=== PATIENT | male | born 1955 | race Caucasian/White ===

== ENCOUNTER → 2023-06-22 11:36 | Outpatient (BNVA) | payer MEDICARE, SELFPAY | PROVIDERS: PCP Nurse Practitioner Family; Visit Provider Physician Assistant | DX: S83.91XA Sprain of unspecified site of right knee, initial encounter; X50.9XXA Other and unspecified overexertion or strenuous movements or postures, initial encounter | CPT/HCPCS: 73560; 73565; 99203 ==

== ENCOUNTER 2025-03-10 19:03 | Emergency (ER) | payer MEDICARE, SELFPAY ==
[2025-03-10 19:04] VITALS: BP 168/83; PULSE 65; RESP 14; TEMP 36.8; O2SAT 99; BMI 25.8
--- NOTE | 2025-03-10 19:07 | ECG_ITS ---
[facility] Test Date: 2025-03-10 Pat Name: Mina Tenorio Department: Room: Gender: Male Fire Control Assistant: : 1955 Requested By: Raine Freitas Order Number: [id number] Rice MD: Tessa Curtis M.D. Measurements Intervals Hume Rate: 67 P: 30 HI: 204 QRS: 15 QRSD: 76 T: 34 QT: 379 QTc: 403 Interpretive Statements SINUS RHYTHM No previous ECG available for comparison Electronically Signed On 03-10-2025 23:22:45 CDT by Tessa Curtis M.D. [email or web address] [id number]
--- OUTSIDE RECORDS SUMMARY | 2025-03-10 19:09 | XMS_ITS | Encounter Summary ---
Author Organization [facility] Address [address] [place] [address] Care Team Providers Care State Trooper Name Role Phone Alireza Greer MD, Brown David Primary Care Provider Encounter Details Date Type Department Care Team (Latest Contact Info) Description 2002 Outpatient Historical [facility] Roosevelt Guardado MD [address] [place] [address] HYPERTENSION NOS (Primary Dx); ABN FIND-STOOL CONTENTS-OCC BLOOD; GENERALIZED ANXIETY DIS Social History Tobacco Use Types Packs/Day Years Used Date Smoking Tobacco: Never Assessed Sex and Gender Information Value Date Recorded Sex Assigned at Not on file Legal Sex Male 4:27 AM DEBURRER STRIP Gender Identity Not on file Sexual Orientation Not on file documented as of this encounter Plan of Treatment Not on file documented as of this encounter Visit Diagnoses Diagnosis Unspecified essential hypertension- Primary Nonspecific abnormal finding in stool contents Generalized anxiety disorder documented in this encounter Care Teams State Trooper Relationship Specialty Start Date End Date Brown Lay Jr., MD [address] [place] [phone] PCP - General 07/12/07 documented as of this encounter
--- OUTSIDE RECORDS SUMMARY | 2025-03-10 19:09 | XMS_ITS | Encounter Summary ---
Author Organization [facility] Address [address] [place] [address] Care Team Providers Care Aircraft Time Clerk Name Role Phone Alireza Greer MD, Brown David Primary Care Provider Encounter Details Date Type Department Care Team (Late st Contact Info) Description 07/18/[address] [facility] Ophthalmology [address] [address] [place] [phone] Selam Rodney MD [address] [place] [address] Social History Tobacco Use Types Packs/Day Years Used Date Smoking Tobacco: Never Assessed Sex and Gender Information Value Date Recorded Sex Assigned at Not on file Legal Sex Male 4:27 AM INTEGRATED CIRCUIT LAYOUT DESIGNER Gender Identity Not on file Sexual Orientation Not on file documented as of this encounter Miscellaneous Notes * Letter - Becki Rodney - 07/18/2007 12:00 AM CST 07/18/2007 Gabriel Slater O.D. [address] [place] [id number] RE: Pipe TenorioJr : [address] Slater: Mr. Tenorio had retinal detachment repair in the right eye on May 12, 2007, with scleral buckleand vitrectomy. As you will recall, he also had a giant retinal tear in the right eye. His postoperative recovery has been unremarkable. I saw him on May 13, 2007, May 16, May 30, June 13, 2007, and today, July 18. He feels that his vision has improved and the gas bubble is gone. He tripped and fell about three weeks ago. On today's examination, his vision measured 20/60 (ph to 20/30), right eye, and 20/20-1, left eye. IOP: 20mm/Hg, right eye. Anterior segment exam revealed: OD: a healed anterior segment with no signsof infection or inflammation. There is a 1+ posterior subcapsular cataract. Dilated Fundus Examination, OD, revealed: a moderate buckle height and a flat retina. A slit tear at 9:30 clock hour in the peripheral retina on the posterior edge of the buckle. No cystoid macular edema or epiretinal membrane is seen. I discussed the above findings with and Mrs. Tenorio. I would like to treat this tear with laser retinopexy in the right eye. He will contact his insurance prior to the procedure for pre-approval. The laser is scheduled for July 25, 2007. Thank you very much, again, for the opportunity to see Mr. Tenorio. Warm regards, Loraine Rodney M.D., Ph.D. Retina Coring Machine Operator Electronically Signed by Loraine Rodney M.D. 07/20/2007 10:02 , P, rs Job #: Document #: [id number] cc: Nidhi De Paz M.D. GRATED CIRCUIT LAYOUT DESIGNER documented in this encounter Plan of Treatment Not on file documented as of this encounter Visit Diagnoses Not on filedocumented in this encounter Care Teams Aircraft Time Clerk Relationship Specialty Start Date End Date Brown Lay Jr., MD [address] [place] [phone] PCP - General 07/12/07 documented as of this encounter
--- OUTSIDE RECORDS SUMMARY | 2025-03-10 19:09 | XMS_ITS | Encounter Summary ---
Author Organization [facility] Address [address] [place] [address] Care Team Providers Care Transmission Tester Name Role Phone Alireza Greer MD, Brown David Primary Care Provider Encounter Details Date Type Department Care Team (Latest Contact Info) Description 12/26/2002 Outpatient Historical [facility] Roosevelt Guardado MD [address] [place] [address] PURE HYPERGLYCERIDEMIA (Primary Dx); DYSMETABOLIC SYNDROME X Social History Tobacco Use Types Packs/Day Years Used Date Smoking Tobacco: Never Assessed Sex and Gender Information Value Date Recorded Sex Assigned at Not on file Legal Sex Male 4:27 AM MEDICAL RECEPTIONIST Gender Identity Not on file Sexual Orientation Not on file documented as of this encounter Plan of Treatment Not on file documented as of this encounter Visit Diagnoses Diagnosis Pure hyperglyceridemia- Primary Dysmetabolic syndrome X Dysmetabolic Syndrome X documented in this encounter Care Teams Transmission Tester Relationship Specialty Start Date End Date Brown Lay Jr., MD [address] [place] [phone] PCP - General 07/12/07 documented as of this encounter
--- OUTSIDE RECORDS SUMMARY | 2025-03-10 19:09 | XMS_ITS | Encounter Summary ---
Author Organization [facility] Address [address] [place] [address] Care Team Providers Care Gospel Worker Name Role Phone Alireza Greer MD, Brown David Primary Care Provider Encounter Details Date Type Department Care Team (Late st Contact Info) Description 05/16/2007 Outpatient Historical [facility] Ophthalmology [address] [place] [phone] Selam Rodney MD [address] [place] [address] [phone] Social History Tobacco Use Types Packs/Day Years Used Date Smoking Tobacco: Never Assessed Sex and Gender Information Value Date Recorded Sex Assigned at Not on file Legal Sex Male 4:27 AM MANAGER THERAPY Gender Identity Not on file Sexual Orientation Not on file documented as of this encounter Plan of Treatment Not on file documented as of this encounter Visit Diagnoses Not on filedocumented in this encounter Care Teams Gospel Worker Relationship Specialty Start Date End Date Brown Lay Jr., MD [address] [place] [phone] PCP - General 07/12/07 documented as of this encounter
--- OUTSIDE RECORDS SUMMARY | 2025-03-10 19:09 | XMS_ITS | Encounter Summary ---
Author Organization [facility] Address [address] [place] [address] Care Team Providers Care Explosive Operator Fuse Name Role Phone Alireza Greer MD, Brown David Primary Care Provider Encounter Details Date Type Department Care Team (Latest Contact Info) Description 03/07/2001 Outpatient Historical [facility] RashadAndrew MD [address] [facility] [address] [place] [address] Other specified disorder of gallbladder (Primary Dx) Social History Tobacco Use Types Packs/Day Years Used Date Smoking Tobacco: Never Assessed Sex and Gender Information Value Date Recorded Sex Assigned at Not on file Legal Sex Male 4:27 AM GARAGE HELPER Gender Identity Not on file Sexual Orientation Not on file documented as of this encounter Plan of Treatment Not on file documented as of this encounter Visit Diagnoses Diagnosis Other specified disorder of gallbladder- Primary documented in this encounter Care Teams Explosive Operator Fuse Relationship Specialty Start Date End Date Brown Lay Jr., MD [address] [place] [phone] PCP - General 07/12/07 documented as of this encounter
--- OUTSIDE RECORDS SUMMARY | 2025-03-10 19:09 | XMS_ITS | Encounter Summary ---
Author Organization [employer] Address [address] [place] [address] Care Team Providers Care Second Time Worker Name Role Phone Alireza Greer MD, Brown David Primary Care Provider Encounter Details Date Type Department Care Team (Latest Contact Info) Description 08/01/2002 Outpatient Historical [facility] Roosevelt Guardado MD [address] [place], [place] [address] HYPERTENSION NOS (Primary Dx) Social History Tobacco Use Types Packs/Day Years Used Date Smoking Tobacco: Never Assessed Sex and Gender Information Value Date Recorded Sex Assigned at Not on file Legal Sex Male 4:27 AM COUNTY ADMINISTRATOR Gender Identity Not on file Sexual Orientation Not on file documented as of this encounter Plan of Treatment Not on file documented as of this encounter Visit Diagnoses Diagnosis Unspecified essential hypertension- Primary documented in this encounter Care Teams Second Time Worker Relationship Specialty Start Date End Date Brown Lay Jr., MD [address] [place] [phone] PCP - General 07/12/07 documented as of this encounter
--- OUTSIDE RECORDS SUMMARY | 2025-03-10 19:09 | XMS_ITS | Encounter Summary ---
Author Organization [facility] Address [address] [place] [address] Care Team Providers Care Firer Diesel Locomotive Name Role Phone Alireza Greer MD, Brown David Primary Care Provider Encounter Details Date Type Department Care Team (Late st Contact Info) Description 07/25/2007 Outpatient Historical [facility] Ophthalmology [address] [place] [phone] Selam Rodney MD [address] [place] [address] [phone] Social History Tobacco Use Types Packs/Day Years Used Date Smoking Tobacco: Never Assessed Sex and Gender Information Value Date Recorded Sex Assigned at Not on file Legal Sex Male 4:27 AM PROJECT CONSTRUCTION MANAGER Gender Identity Not on file Sexual Orientation Not on file documented as of this encounter Plan of Treatment Not on file documented as of this encounter Visit Diagnoses Not on filedocumented in this encounter Care Teams Firer Diesel Locomotive Relationship Specialty Start Date End Date Brown Lay Jr., MD [address] [place] [phone] PCP - General 07/12/07 documented as of this encounter
--- OUTSIDE RECORDS SUMMARY | 2025-03-10 19:09 | XMS_ITS | Encounter Summary ---
Author Organization [facility] Address [address] [place] [address] Care Team Providers Care Co Op Name Role Phone Alireza Greer MD, Brown David Primary Care Provider Encounter Details Date Type Department Care Team (Late st Contact Info) Description 06/13/2007 Outpatient Historical [facility] Ophthalmology [address] [place] [address] [place] [address] [address] [place] [phone] Selam Rodney MD [address] [place] [phone] Social History Tobacco Use Types Packs/Day Years Used Date Smoking Tobacco: Never Assessed Sex and Gender Information Value Date Recorded Sex Assigned at Not on file Legal Sex Male 4:27 AM HEAD IRRIGATOR Gender Identity Not on file Sexual Orientation Not on file documented as of this encounter Plan of Treatment Not on file documented as of this encounter Visit Diagnoses Not on filedocumented in this encounter Care Teams Co Op Relationship Specialty Start Date End Date Brown Lay Jr., MD [address] [place] [phone] PCP - General 07/12/07 documented as of this encounter
--- OUTSIDE RECORDS SUMMARY | 2025-03-10 19:09 | XMS_ITS | Clinical Summary ---
Author Organization [facility] Address [address] [place] [address] Care Team Providers Care Retail Salesman Name Role Phone Alireza Greer MD, Brown David Primary Care Provider Social History Tobacco Use Types Packs/Day Years Used Date Smoking Tobacco: Never Assessed Sex and Gender Information Value Date Recorded Sex Assigned at Not on file Legal Sex Male 4:27 AM LEAD QUALITY TECHNICIAN Gender Identity Not on file Sexual Orientation Not on file Plan of Treatment Health Maintenance Due Date Last Done Comments DTAP/TDAP/TD VACCINES (1 - Tdap) 1974 COLORECTAL SCREENING 2000 FIT-DNA Q 3 years 2000 Flex Sig/CT Colonography Q 5 years 2000 Colorectal Cancer Screening 08/06/2003 FIT/FOBT Q 1 year 08/06/2003 08/05/2002 PNEUMOCOCCAL VACCINE 50+ YEARS (1 of 1 - PCV) 07/26/19 06 ZOSTER VACCINE (1 of 2) 2005 INFLUENZA VACCINE (#1) 2025 RSV VACCINE (60+ or ) (1 - 1-dose 75+ series) 2030 Insurance [facility] INSURANCE Care Teams Retail Salesman Relationship Specialty Start Date End Date Brown Lay Jr., MD [address] [place] [phone] PCP - General 07/12/07
--- OUTSIDE RECORDS SUMMARY | 2025-03-10 19:09 | XMS_ITS | Encounter Summary ---
Author Organization [facility] Address [address] [place] [address] Care Team Providers Care Brake Shoe Rebuilder Name Role Phone Alireza Greer MD, Brown David Primary Care Provider Encounter Details Date Type Department Care Team (Latest Contact Info) Description 07/29/2002 Outpatient Historical [facility] Roosevelt Guardado MD [address] [place] [address] ABN FIND-STOOL CONTENTS-OCC BLOOD (Primary Dx) Social History Tobacco Use Types Packs/Day Years Used Date Smoking Tobacco: Never Assessed Sex and Gender Information Value Date Recorded Sex Assigned at Not on file Legal Sex Male 4:27 AM WEAVER NEEDLE LOOM Gender Identity Not on file Sexual Orientation Not on file documented as of this encounter Plan of Treatment Not on file documented as of this encounter Visit Diagnoses Diagnosis Nonspecific abnormal finding in stool contents- Primary documented in this encounter Care Teams Brake Shoe Rebuilder Relationship Specialty Start Date End Date Brown Lay Jr., MD [address] [place] [phone] PCP - General 07/12/07 documented as of this encounter
--- OUTSIDE RECORDS SUMMARY | 2025-03-10 19:09 | XMS_ITS | Encounter Summary ---
Author Organization [facility] Address [address] [place] [address] Care Team Providers Care Sourcing Associate Name Role Phone Alireza Greer MD, Brown David Primary Care Provider Encounter Details Date Type Department Care Team (Latest Contact Info) Description 08/05/2002 Outpatient Historical [facility] Roosevelt Guardado MD [address] [place] [address] SCREENING MAL NEOP-SITE NEC (Primary Dx) Social History Tobacco Use Types Packs/Day Years Used Date Smoking Tobacco: Never Assessed Sex and Gender Information Value Date Recorded Sex Assigned at Not on file Legal Sex Male 4:27 AM JAZZ SINGER Gender Identity Not on file Sexual Orientation Not on file documented as of this encounter Plan of Treatment Not on file documented as of this encounter Visit Diagnoses Diagnosis Special screening for malignant neoplasms of other sites- Primary documented in this encounter Care Teams Sourcing Associate Relationship Specialty [place] [address] [place] [phone] PCP - General 07/12/07 documented as of this encounter
--- OUTSIDE RECORDS SUMMARY | 2025-03-10 19:09 | XMS_ITS | Encounter Summary ---
Author Organization [facility] Address [address] [place] [address] Care Team Providers Care Drill Press Set Up Operator Radial Name Role Phone Alireza Greer MD, Brown David Primary Care Provider Encounter Details Date Type Department Care Team (Late st Contact Info) Description 07/29/2002 Outpatient Historical [facility] Roosevelt Guardado MD [address] [place] [address] Social History Tobacco Use Types Packs/Day Years Used Date Smoking Tobacco: Never Assessed Sex and Gender Information Value Date Recorded Sex Assigned at Not on file Legal Sex Male 4:27 AM CHOPPER OPERATOR Gender Identity Not on file Sexual Orientation Not on file documented as of this encounter Plan of Treatment Not on file documented as of this encounter Visit Diagnoses Not on filedocumented in this encounter Care Teams Drill Press Set Up Operator Radial Relationship Specialty Start Date End Date Brown Lay Jr., MD [address] [place] [phone] PCP - General 07/12/07 documented as of this encounter
--- OUTSIDE RECORDS SUMMARY | 2025-03-10 19:09 | XMS_ITS | Encounter Summary ---
Author Organization [facility] Address [address] [place] [address] Care Team Providers Care Core Dropper Name Role Phone Alireza Greer MD, Brown David Primary Care Provider Encounter Details Date Type Department Care Team (Late st Contact Info) Description 05/30/2007 Outpatient Historical [facility] Ophthalmology [address] [place] [phone] Selam Rodney MD [address] [place] [address] [phone] Social History Tobacco Use Types Packs/Day Years Used Date Smoking Tobacco: Never Assessed Sex and Gender Information Value Date Recorded Sex Assigned at Not on file Legal Sex Male 4:27 AM GENERAL ASSEMBLER Gender Identity Not on file Sexual Orientation Not on file documented as of this encounter Plan of Treatment Not on file documented as of this encounter Visit Diagnoses Not on filedocumented in this encounter Care Teams Core Dropper Relationship Specialty Start Date End Date Brown Lay Jr., MD [address] [place] [phone] PCP - General 07/12/07 documented as of this encounter
--- OUTSIDE RECORDS SUMMARY | 2025-03-10 19:09 | XMS_ITS | Clinical Summary ---
Author Organization [facility] Address [address] [facility] Attn: [place] [address] Care Team Providers Care Guest Services Assistant Name Role Phone Alireza Gerer MD, Brown David Primary Care Provider Social History Tobacco Use Types Packs/Day Years Used Date Smoking Tobacco: Never Assessed Sex and Gender Information Value Date Recorded Sex Assigned at Not on file Legal Sex Male 10:56 AM INSTRUCTOR ROBOTICS Gender Identity Not on file Sexual Orientation Not on file Plan of Treatment Health Maintenance Due Date Last Done Comments DTAP/TDAP/TD VACCINES (1 - Tdap) 1974 COLORECTAL SCREENING 2000 Colorectal Cancer Screening 2000 FIT-DNA Q 3 years 2000 FIT/FOBT Q 1 year 2000 Flex Sig/CT Colonography Q 5 years 2000 PNEUMOCOCCAL VACCINE 50+ YEARS (1 of 1 - PCV) 07/26/19 06 ZOSTER VACCINE (1 of 2) 2005 INFLUENZA VACCINE (#1) 2025 RSV VACCINE (60+ or ) (1 - 1-dose 75+ series) 2030 Care Teams Guest Services Assistant Relationship Specialty Start Date End Date Brown Lay Jr., MD [address] [place] [phone] PCP - General 07/12/07
--- OUTSIDE RECORDS SUMMARY | 2025-03-10 19:09 | XMS_ITS | Encounter Summary ---
Author Organization [facility] Address [address] [place] [address] Care Team Providers Care Angle Bender Name Role Phone Alireza Greer MD, Brown David Primary Care Provider Encounter Details Date Type Department Care Team (Latest Contact Info) Description 09/08/2003 Outpatient Historical [facility] Roosevelt Guardado MD [address] [place] [address] PURE HYPERGLYCERIDEMIA (Primary Dx); AFTERCARE DEFENSE ANALYST USE MEDICATN Social History Tobacco Use Types Packs/Day Years Used Date Smoking Tobacco: Never Assessed Sex and Gender Information Value Date Recorded Sex Assigned at Not on file Legal Sex Male 4:27 AM OYSTERMAN Gender Identity Not on file Sexual Orientation Not on file documented as of this encounter Plan of Treatment Not on file documented as of this encounter Visit Diagnoses Diagnosis Pure hyperglyceridemia- Primary Encounter for long-term (current) use of other medications documented in this encounter Care Teams Angle Bender Relationship Specialty Start Date End Date Brown Lay Jr., MD [address] [place] [phone] PCP - General 07/12/07 documented as of this encounter
--- OUTSIDE RECORDS SUMMARY | 2025-03-10 19:09 | XMS_ITS | Encounter Summary ---
Author Organization [facility] Address [address] [place] [address] Care Team Providers Care Mineralogy Teacher Name Role Phone Alireza Greer MD, Bronw David Primary Care Provider Encounter Details Date Type Department Care Team (Late st Contact Info) Description 08/01/2002 Outpatient Historical [facility] Roosevelt Guardado MD [address] [place] [address] Social History Tobacco Use Types Packs/Day Years Used Date Smoking Tobacco: Never Assessed Sex and Gender Information Value Date Recorded Sex Assigned at Not on file Legal Sex Male 4:27 AM BUCKLE GLUER Gender Identity Not on file Sexual Orientation Not on file documented as of this encounter Plan of Treatment Not on file documented as of this encounter Visit Diagnoses Not on filedocumented in this encounter Care Teams Mineralogy Teacher Relationship Specialty Start Date End Date Brown Lay Jr., MD [address] [place] [phone] PCP - General 07/12/07 documented as of this encounter
--- NOTE | 2025-03-10 19:10 | XRR_ITS ---
PROCEDURE INFORMATION: Exam: XR Chest Exam date and time: 03/10/2025 7:25 PM Age: 69 years old Clinical indication: Pain; Chest pressure; Additional info: Chest pain TECHNIQUE: Imaging protocol: Radiologic exam of the chest. Views: 1 view. COMPARISON: No relevant prior studies available. FINDINGS: Lungs: Unremarkable. No consolidation. Pleural spaces: Unremarkable. No pleural effusion. No pneumothorax. Heart/Mediastinum: Unremarkable. No cardiomegaly. Vasculature: Aortic atherosclerosis Bones/joints: Unremarkable. XR/XR chest 1V portable [id number] IMPRESSION: No acute findings.
--- OUTSIDE RECORDS SUMMARY | 2025-03-10 19:10 | XMS_ITS | Encounter Summary ---
Author Organization [facility] Address [address] [place] [address] Care Team Providers Care Assignment Desk Editor Name Role Phone Alireza Greer MD, Brown David Primary Care Provider Encounter Details Date Type Department Care Team (Latest Contact Info) Description 09/19/2003 Outpatient Historical [facility] Roosevelt Guardado MD [address] [place], [place] [address] PURE HYPERGLYCERIDEMIA (Primary Dx); Other Counseling Social History Tobacco Use Types Packs/Day Years Used Date Smoking Tobacco: Never Assessed Sex and Gender Information Value Date Recorded Sex Assigned at Not on file Legal Sex Male 4:27 AM SPRAY OPERATOR Gender Identity Not on file Sexual Orientation Not on file documented as of this encounter Plan of Treatment Not on file documented as of this encounter Visit Diagnoses Diagnosis Pure hyperglyceridemia- Primary Other Counseling Other specified counseling documented in this encounter Care Teams Assignment Desk Editor Relationship Specialty Start Date End Date Brown Lay Jr., MD [address] [place] [phone] PCP - General 07/12/07 documented as of this encounter
--- OUTSIDE RECORDS SUMMARY | 2025-03-10 19:10 | XMS_ITS | Encounter Summary ---
Author Organization [facility] Address [address] [place] [address] Care Team Providers Care Acoustical Installer Name Role Phone Alireza Greer MD, Brown David Primary Care Provider Encounter Details Date Type Department Care Team (Late st Contact Info) Description 08/09/2002 Outpatient Historical [facility] Roosevelt Guardado MD [address] [place] [address] Social History Tobacco Use Types Packs/Day Years Used Date Smoking Tobacco: Never Assessed Sex and Gender Information Value Date Recorded Sex Assigned at Not on file Legal Sex Male 4:27 AM EMPLOYMENT ADJUDICATOR Gender Identity Not on file Sexual Orientation Not on file documented as of this encounter Plan of Treatment Not on file documented as of this encounter Visit Diagnoses Not on filedocumented in this encounter Care Teams Acoustical Installer Relationship Specialty Start Date End Date Brown Lay Jr., MD [address] [place] [phone] PCP - General 07/12/07 documented as of this encounter
--- OUTSIDE RECORDS SUMMARY | 2025-03-10 19:10 | XMS_ITS | Encounter Summary ---
Author Organization [facility] Address [address] [place] [address] Care Team Providers Care Tent Worker Name Role Phone Alireza Greer MD, Brown David Primary Care Provider Encounter Details Date Type Department Care Team (Latest Contact Info) Description 08/09/2002 Outpatient Historical [facility] Roosevelt Guardado MD [address] [place] [address] HYPERTENSION NOS (Primary Dx); Other Counseling; AFTERCARE SILK PRESSER USE MEDICATN Social History Tobacco Use Types Packs/Day Years Used Date Smoking Tobacco: Never Assessed Sex and Gender Information Value Date Recorded Sex Assigned at Not on file Legal Sex Male 4:27 AM LIQUOR BRIDGE OPERATOR Gender Identity Not on file Sexual Orientation Not on file documented as of this encounter Plan of Treatment Not on file documented as of this encounter Visit Diagnoses Diagnosis Unspecified essential hypertension- Primary Other Counseling Other specified counseling Encounter for long-term (current) use of other medications documented in this encounter Care Teams Tent Worker Relationship Specialty Start Date End Date Brown Lay Jr., MD [address] [place] [phone] PCP - General 07/12/07 documented as of this encounter
--- OUTSIDE RECORDS SUMMARY | 2025-03-10 19:10 | XMS_ITS | Encounter Summary ---
Author Organization [facility] Address [address] [place] [address] Care Team Providers Care Junior Staff Accountant Name Role Phone Alireza Greer MD, Brown David Primary Care Provider Encounter Details Date Type Department Care Team (Latest Contact Info) Description 11/07/2002 Outpatient Historical [facility] Roosevelt Guardado MD [address] [place], [place] [address] Malignant hypertension (Primary Dx) Social History Tobacco Use Types Packs/Day Years Used Date Smoking Tobacco: Never Assessed Sex and Gender Information Value Date Recorded Sex Assigned at Not on file 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
--- OUTSIDE RECORDS SUMMARY | 2025-03-10 19:10 | XMS_ITS | Encounter Summary ---
Author Organization [facility] Address [address] [place] [address] Care Team Providers Care Spectrographic Analyst Name Role Phone Alireza Greer MD, Brown David Primary Care Provider Encounter Details Date Type Department Care Team (Latest Contact Info) Description 05/05/2007 Outpatient Historical [facility] [address] 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
--- OUTSIDE RECORDS SUMMARY | 2025-03-10 19:10 | XMS_ITS | Encounter Summary ---
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 Gender Identity Not on file Sexual Orientation Not on file documented as of this encounter Plan of Treatment Not on file documented as of this encounter Procedures Procedure Name Priority Date/Time Associated Diagnosis Comments CBC WITH DIFFERENTIAL Routine 05/12/2007 8:54 AM WATERWORKS PUMP STATION OPERATOR BASIC METABOLIC PANEL Routine 05/12/2007 8:54 AM WATERWORKS PUMP STATION OPERATOR documented in this encounter Results * (ABNORMAL) CBC WITH DIFFERENTIAL (05/12/2007 8:54 AM WATERWORKS PUMP STATION OPERATOR) WBC 5.9 4.8 - 10.8 K/ul INTERFACE SYSTEM RBC 4.46(L) 4.60 - 6.20 Mil/ul INTERFACE SYSTEM HEMOGLOBIN 14.4 14.0 - 18.0 g/dL INTERFACE SYSTEM HEMATOCRIT 40.9(L) 41.0 - 53.0 % INTERFACE SYSTEM MCV 91.7 84.0 - 103.0 Fl INTERFACE SYSTEM MCH 32.3 27.0 - 34.0 pg INTERFACE SYSTEM MCHC 35.2(H) 30.0 - 35.0 g/dL INTERFACE SYSTEM RDW 12.3 11.0 - 14.5 % INTERFACE SYSTEM PLATELETS 208 140 - 440 K/ul INTERFACE SYSTEM MPV 9.7 8.9 - 12.8 Fl INTERFACE SYSTEM NEUTROPHILS 55.3 42.2 - 75.2 % INTERFACE SYSTEM LYMPHOCYTES 31.5 24.0 - 44.0 % INTERFACE SYSTEM MONOCYTES 10.5(H) 2.0 - 10.0 % INTERFACE SYSTEM EOSINOPHILS 2.4 0.0 - 7.0 % INTERFACE SYSTEM BASOPHILS 0.3 0.0 - 1.0 % INTERFACE SYSTEM NEUTROPHIL ABSOLUTE 3.3 2.0 - 8.0 K/ul INTERFACE SYSTEM LYMPHOCYTE ABSOLUTE 1.9 1.2 - 4.0 K/ul INTERFACE SYSTEM MONOCYTE ABSOLUTE 0.6 0.1 - 0.6 K/ul INTERFACE SYSTEM EOSINOPHIL ABSOLUTE 0.1 0.0 - 0.7 K/ul INTERFACE SYSTEM BASOPHILS ABSOLUTE 0.0 0.0 - 0.2 K/ul INTERFACE SYSTEM 05/12/2007 8:54 AM WATERWORKS PUMP STATION OPERATOR us X Aletha Rodney MD HEMATOLOGY ORDERABLES Edited INTERFACE SYSTEM Refer to clinic/hospital department * (ABNORMAL) BASIC METABOLIC PANEL (05/12/2007 8:54 AM WATERWORKS PUMP STATION OPERATOR) GLUCOSE 104 70 - 110 mg/dL INTERFACE SYSTEM BUN 23(H) 9 - 20 mg/dL INTERFACE SYSTEM CREATININE 1.2 0.7 - 1.5 mg/dL INTERFACE SYSTEM SODIUM 140 136 - 145 mEq/L INTERFACE SYSTEM POTASSIUM 4.7 3.5 - 5.0 mEq/L INTERFACE SYSTEM CHLORIDE 108 95 - 110 mEq/L INTERFACE SYSTEM CO2 24 22 - 32 mmol/l INTERFACE SYSTEM CALCIUM 9.7 8.4 - 10.5 mg/dL INTERFACE SYSTEM ANION GAP 13 9 - 20 mEq/L INTERFACE SYSTEM OSMOLALITY, CALCULATED 293 275 - 295 mOsm/Kg INTERFACE SYSTEM 05/12/2007 8:54 AM WATERWORKS PUMP STATION OPERATOR us X Aletha Rodney MD CHEMISTRY ORDERABLES Edited INTERFACE SYSTEM Refer to clinic/hospital department documented in this encounter Visit Diagnoses Not on filedocumented in this encounter Care Teams Reheater Relationship Specialty Start Date End Date Brown Lay Jr., MD [address] [place] [phone] PCP - General 07/12/07 documented as of this encounter
--- OUTSIDE RECORDS SUMMARY | 2025-03-10 19:10 | XMS_ITS | Encounter Summary ---
Author Organization [facility] Address [address] [place] [address] Care Team Providers Care Superintendent Power Name Role Phone Alireza Greer MD, Brown David Primary Care Provider Encounter Details Date Type Department Care Team (Late st Contact Info) Description 05/14/2007 Outpatient Historical [facility] [address] [address] [place] [phone] Selam Rodney MD 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
--- OUTSIDE RECORDS SUMMARY | 2025-03-10 19:10 | XMS_ITS | Data Portability ---
Author Organization JAVIER Fred Dacosta [facility], [place], [facility] Address [address] [address] Care Team Providers Care Forex Trader Name Role Phone DANIEL POSADAS Primary Care Provider [phone] Assessment Encounter Date Assessment Date Assessment LastModified by Organization Details LastModified Time 05/19/2023 05/19/2023 Patient reports his right knee has been bothering him for 9 weeks now. He has been using some menthol cream but it doesn't seem to be doing the trick. He is taking tylenol to help with pain. Advised him he can continue with the Tylenol, may try to find a knee brace/sleeve. Will get xray and then possibly MRI if pain continues. Not available 05/23/2023 11:06:57 01/10/2024 01/10/2024 Patient here for a check-up today. Overall he has been doing well. Refills to be sent. CCA form completed at today's visit. Not available 01/10/2024 15:36:22 Plan of Treatment Reminders Order Date Submit Date Provider Last Modified By Organization Details Last Modified Time Details Appointments None recorded. Lab celiac disease comprehensi ve panel, serum 2024 025 [facility]ANCE [facility], [address] [facility] [address], [address] , [place], [address], 5 13:31:59 TSH, serum or plasma 2024 025 [facility], [address], [place], [address], 5 12:32:07 culture, stool 2024 025 [facility], [address] [place] [address] 248, [address], [place], [address], 5 08:40:20 O&P (ova & parasites), stool 2024 025 [facility], [address] [place] [address] 248, [address], [place], [address], 5 16:50:17 fecal fat, qualitative , stool 2024 025 [place] [facility], [address] [place] [address], [address], [place], [address], 5 23:10:52 PSA, serum or plasma 2023 024 [facility], [address] [place] [address], [address], [place], [address], 4 09:00:20 CMP, serum or plasma 2023 024 [place] [facility], [address], [address], [place], [address], 4 16:53:18 lipid panel, blood 2023 024 CHANCE [facility], [address], [place], [address], 4 16:53:21 CBC 2023 024 [facility], [address], [place], [address], 4 16:08:11 TSH, serum or plasma 2023 024 [facility] ([facility]), [address] [place], [address], 4 16:33:54 Referral None recorded. Procedures colonoscopy procedure (PROC) 2024 025 [place] [id number] 2 Andrew Solorzano MD, [address] [facility], [place], [address], 5 12:42:41 Surgeries None recorded. Imaging XR, knee, 3 view 2022 023 [place] [id number] 2 [facility] ([facility]), [address] [place], [address], 3 12:59:20 Medication Orders allopurinol 100 mg tablet 2023 024 [id number], [address], [place], [address], 4 15:36:23 fenofibrate nanocrystal lized 145 mg tablet 2023 024 [id number], [address], [address], [place], [address], 4 15:36:32 lisinopril 10 mg tablet 2023 024 [id number], [address], [address], [place], [address], 4 15:36:22 paroxetine 20 mg tablet 2023 024 [id number], [address], [place], [address], 4 15:36:25 Voltaren 1 % topical gel 2022 023 [facility][id number], [address], [place], [place], [id number], 15:19:39 Patient TargetsNo targets recorded. Patient Instructions Encounter Date Encounter Id Patient Instructions Last Modified By Organization Details Last Modified Time 05/19/2023 [id number] Call or return for questions or concerns. Not available 05/23/2023 11:05:14 01/10/2024 [id number] Call or return for questions or concerns. Not available 01/10/2024 15:38:21 Reason for Referral None Reported. Results Created Date Observation Date Name Description Value Unit Range Abnormal Flag Note LastModifiedBy Organization Detail LastModifiedTime 01/10/2001/10/2024 CBC WBC 5.5 x10 4.5-10 .5 Not Available [facility] [address] [facility], [place], [address], 01/10/2024 16:08:11 01/10/20 24 01/10/2024 CBC RBC 4.13 x10 4.30-5 .90 low Not Available [facility] [address] [facility] Marcia [facility], [place], [address], 01/10/2024 16:08:11 01/10/20 24 01/10/2024 CBC HGB 14.6 g/dL 13.5-1 8.0 Not Available [facility] [address] [facility] 1, [place], [address], 01/10/2024 16:08:11 01/10/20 24 01/10/2024 CBC HCT 41.7 % 35.0-6 0.0 Not Available [facility] [address] [facility] Marcia [facility] 1, [place], [address], 01/10/2024 16:08:11 01/10/20 24 01/10/2024 CBC MCV 100.9 fL 80.0-9 9.9 high Not Available [facility] [address] [facility] 1, [place], [address], 01/10/2024 16:08:11 01/10/20 24 01/10/2024 CBC MCH 35.3 pg 27.0-3 2.0 high Not Available [facility] [address] [facility] 1, [place], [address], 01/10/2024 16:08:11 01/10/20 24 01/10/2024 CBC MCHC 34.9 g/dL 32.0-3 6.0 Not Available [facility] [address] [facility] 1, [place], [address], 01/10/2024 16:08:11 01/10/20 24 01/10/2024 CBC RDW 12.1 % 11.5-1 4.5 Not Available [facility] [address] [facility] 1, [place], [address], 01/10/2024 16:08:11 01/10/20 24 01/10/2024 CBC plt 275.0 x10 150.0- 451.0 Not Available [facility] [address] [facility] 1, [place], [address], 01/10/2024 16:08:11 01/10/20 24 01/10/2024 CBC lymphocytes % 34.6 % 20.0-5 0.0 Not Available [facility] [address] [facility] 1, [place], [address], 01/10/2024 16:08:11 01/10/20 24 01/10/2024 CBC granulcytes % 53.6 % 30.0-7 0.0 Not Available [facility] [address] [facility] 1, [place], [address], 01/10/2024 16:08:11 01/10/20 24 01/10/2024 CBC monocytes % 9.7 % 2.0-16 .0 Not Available [facility] [address] [facility] 1, [place], [address], 01/10/2024 16:08:11 01/10/20 24 01/10/2024 CBC granulcytes# 3.0 x10 Not Lisy [facility] [address] [facility], [place], [address], 01/10/2024 16:08:11 01/10/20 24 01/10/2024 CBC lymphocytes # 1.9 x10 Not Available [facility] [address] [facility], [place], [address], 01/10/2024 16:08:11 01/10/20 24 01/10/2024 CBC monocytes # 0.5 x10 Not Avai lable [facility] [address] [facility], [place], [address], 01/10/2024 16:08:11 01/10/20 24 01/10/2024 CMP (MALE ) glucose 105.0 mg/dL 60.0-9 9.0 high Not Available [facility] [address] [facility], [place], [address], 01/10/2024 16:53:18 01/10/20 24 01/10/2024 CMP (MALE ) BUN (blood urea nitrogen) 16.0 mg/dL 10.0-2 6.0 Not Available [facility] [address] [facility] Marcia [facility], [place], [address], 01/10/2024 16:53:18 01/10/20 24 01/10/2024 CMP (MALE ) creatinine (serum) 0.9 mg/dL 0.4-1. 5 Not Available [facility] [address] [facility] Marcia [facility], [place], [address], 01/10/2024 16:53:18 01/10/20 24 01/10/2024 CMP (MALE ) BUN/creatini ne ratio 17.39 ratio Not Available [facility] [address] [facility] 1, [place], [address], 01/10/2024 16:53:18 01/10/20 24 01/10/2024 CMP (MALE ) eGFR calculated 87.0 Not Available [facility] [address] [facility], [place], [address], 01/10/2024 16:53:18 01/10/20 24 01/10/2024 CMP (MALE ) total protein 8.1 g/dL 6.0-8. 5 Not Available [facility] [address] [facility], [place], [address], 01/10/2024 16:53:18 01/10/20 24 01/10/2024 CMP (MALE ) total bilirubin 0.9 mg/dL 0.2-1. 3 Not Available [facility] [address] [facility], [place], [address], 01/10/2024 16:53:18 01/10/20 24 01/10/2024 CMP (MALE ) albumin 4.7 g/dL 3.5-5. 5 Not Available [facility] [address] [facility], [place], [address], 01/10/2024 16:53:18 01/10/20 24 01/10/2024 CMP (MALE ) globulin 3.4 calc Not Available [facility] [address] [facility], [place], [address], 01/10/2024 16:53:18 01/10/20 24 01/10/2024 CMP (MALE ) AST (SGOT) 56.0 U/L 0.0-46 .0 high Not Available [facility] [address] [facility] 1, [place], [address], 01/10/2024 16:53:18 01/10/20 24 01/10/2024 CMP (MALE ) altv (SGPT) 23.0 U/L 13.0-6 9.0 normal Not Available [facility] [address] [facility], [place], [address], 01/10/2024 16:53:18 01/10/20 24 01/10/2024 CMP (MALE ) A/G ratio 1.4 ratio Not Available [facility] [address] [facility], [place], [address], 01/10/2024 16:53:18 01/10/20 24 01/10/2024 CMP (MALE ) ALP phos 51.0 U/L 30.0-1 40.0 normal Not Available [facility] [address] [facility], [place], [address], 01/10/2024 16:53:18 01/10/20 24 01/10/2024 CMP (MALE ) calcium 9.4 mg/dL 8.4-10 .5 Not Available [facility] [address] [facility] 1, [place], [address], 01/10/2024 16:53:18 01/10/20 24 01/10/2024 CMP (MALE ) sodium 139.0 mmol/ L 136.0- 145.0 Not Available [facility] [address] [facility], [place], [address], 01/10/2024 16:53:18 01/10/20 24 01/10/2024 CMP (MALE ) potassium 4.4 mmol/ L 3.5-5. 1 Not Available [facility] [address] [facility], [place], [address], 01/10/2024 16:53:18 01/10/20 24 01/10/2024 CMP (MALE ) chloride 109.0 mmol/ L 98.0-1 10.0 normal Not Available [facility] [address] [facility], [place], [address], 01/10/2024 16:53:18 01/10/20 24 01/10/2024 CMP (MALE ) C02 23.0 mmol/ L 22.0-3 1.0 Not Available [facility] [address] [facility], [place], [address], 01/10/2024 16:53:18 01/10/20 24 01/10/2024 CMP (MALE ) anion gap 7.0 calc Not Available [facility] [address] [facility], [place], [address], 01/10/2024 16:53:18 01/10/20 24 01/10/2024 CMP (MALE ) osmolality 288.6 calc Not Available [facility] [address] [facility], [place], [address], 01/10/2024 16:53:18 01/10/20 24 01/10/2024 LIPID PROFI LE (MALE ) cholesterol 170.0 mg/dL 0.0-20 0.0 Not Available [facility] [address] [facility], [place], [address], 01/10/2024 16:53:21 01/10/20 24 01/10/2024 LIPID PROFI LE (MALE ) trig 261.0 mg/dL 0.0-15 0.0 high Not Available [facility] [address] [facility] 1, [place], [address], 01/10/2024 16:53:21 01/10/20 24 01/10/2024 LIPID PROFI LE (MALE ) HDL - direct 61.0 mg/dL >40.0 Not Available [facility] [address] [facility] [address], [place], [address], 01/10/2024 16:53:21 01/10/20 24 01/10/2024 LIPID PROFI LE (MALE ) VLDL - direct 52.2 mg/dL Not Available [facility] [address] [facility] 1, [place], [address], 01/10/2024 16:53:21 01/10/20 24 01/10/2024 LIPID PROFI LE (MALE ) LDL - direct 56.8 mg/dL 0.0-13 0.0 Not Available [facility] [address] [facility] 1, [place], [address], 01/10/2024 16:53:21 01/10/20 24 01/11/2024 PSA, TOTAL PSA, total 1.97 NG/mL < or = 4.00 normal The total PSA value from this assay syste m is stand ardiz ed again st the WHO stand kathryn. The test resul t will be appro ximat skye 20% lower when antoine red to the equim olar- stand ardiz ed total PSA (Casper man Coult er). Antoine rison of seria l PSA resul ts shoul d be inter prete d with this fact in mind. This test was perfo rmed using the EXFOe ns chemi lumin escen t metho d. Value s obtai adal from diffe rent assay metho ds canno t be used inter chery eabao . PSA level s, regar dless of value , shoul d not be inter prete d as absol dean evide nce of the prese nce or absen ce of disea se. Not Available [facility] [address] [place], [address], 01/11/2024 09:00:19 01/10/20 24 01/10/2024 TSH, serum or plasm a TSH 1.46 uIU/m L 0.49-3 .82 Not Available [facility] ([facility]) [address] [place], [address], 01/10/2024 15:16:51 07/17/1907/17/2024 TSH TSH 1.58 uIU/m L 0.49-3 .82 Not Available [facility] [address] [facility] 1, [place], [address], 07/17/2024 17:54:42 07/17/1907/19/2024 JUAN C DISEA SE COMPR EHENS GREG PANEL interpretati on No serol ogica l evide nce of juan c disea se. Total serum IgA is eleva mohit. Consi luz mucos al infla mmato ry condi tions or under lying gammo laurel . Not Available [facility] [address] [address] [place], [address], 07/19/2024 13:31:59 07/17/1907/19/2024 JUAN C DISEA SE COMPR EHENS GREG PANEL tissue transglutami nase Ab, IgA <1.0 U/mL Value Inter preta tion ----- ----- ----- ---- <15.0 Antib samir not detec mohit > or = 15.0 Antib samir detec mohit Not Available [facility] [address] [address] [place], [address], 07/19/2024 13:31:59 07/17/1907/19/2024 JUAN C DISEA SE COMPR EHENS GREG PANEL immunoglobul in A 362 mg/dL 70-320 high Not Available [facility] [address] [address] [place], [address], 07/19/2024 13:31:59 07/18/19 25 07/22/2024 SALMO VITA /SHIG POPPY CULT, CAMPY EIA AND SHIGA TOXIN W/RFL E. COLI O157 CULT campylobacte r spp. Ag,EIA SEE NOTE CAMPY LOBAC TER SPP. AG,EI A Micro Numbe r: [id number] Test Statu s: Final Speci men Sourc e: Stool Speci men Quali ty: Adequ ate Campy Ag Resul t: Not Detec mohit Refer ence Range : Not Detec mohit Not Available [place] [address] [place], [address], 07/22/2024 16:50:17 07/18/19 25 07/22/2024 SALMO VITA /SHIG POPPY CULT, CAMPY EIA AND SHIGA TOXIN W/RFL E. COLI O157 CULT shiga toxins, EIA w/rfl to E.coli O157 culture SEE NOTE SHIGA TOXIN S, EIA W/RFL TO E.COL I O157 CULTU RE Micro Numbe r: [id number] Test Statu s: Final Speci men Sourc e: Stool Speci men Quali ty: Adequ ate Shiga Toxin : Not Detec mohit Refer ence Range : Not Detec mohit Not Available [address] [address] [place], [address], 07/22/2024 16:50:17 07/18/19 25 07/22/2024 SALMO VITA /SHIG POPPY CULT, CAMPY EIA AND SHIGA TOXIN W/RFL E. COLI O157 CULT salmonella and shigella, culture SEE NOTE SALMO VITA AND SHIGE LLA, CULTU RE Micro Numbe r: [id number] Test Statu s: Final Speci men Sourc e: Stool Speci men Quali ty: Adequ ate Resul t: No Salmo vita or Shige lla isola mohit Not Available [facility] [address] [address] [place], [address], 07/22/2024 16:50:17 07/18/19 25 07/22/2024 OVA AND LESLI ITES, CONC AND PERM SMEAR ova and parasites, conc and perm smear SEE NOTE OVA AND LESLI ITES, CONC AND PERM SMEAR Micro Numbe r: [id number] Test Statu s: Final Speci men Sourc e: Stool Speci men Quali ty: Adequ ate DIANA NTRAT ION 1: No ova or lesli ites seen TRICH MICHELLE 1: No ova or lesli ites seen Routi ne Ova and Lesli ite exam may not detec t some lesli ites that occas ional ly cause diarr heal illne ss. Crypt ospor idium Antig en and/o r Cyclo spora and Isosp ora Exam may be order ed to detec t these lesli ites. One negat greg sampl e does not neces saril y rule out the prese nce of a lesli itic infec tion. For addit ional infor abi person refer to https ://ed ucati on.qu TapnScrap/f aq/FA Q203 (This link is being provi ded for infor tess handy/ educcarlita ryder l purpo ses only. ) Not Available [facility] [address] [place], [address], 07/22/2024 16:50:17 07/22/19 25 07/25/2024 FECAL FAT, QUALI TATIV E fecal fat, qualitative NORMAL normal Not Available [facility] [address] [place], [address], 07/25/2024 23:10:51 05/22/20 23 05/19/2023 XR, knee, 3 view No observ ation record ed. [facility] [address] [place], [address], 01/10/2024 15:30:43 Result Notes None recorded. Problems Name Problem SNOMED Code Status Onset Date Resolution Date Notes Provider Name and Address Organization Details Recorded Time Retinal tear 40166765 Active 2022 TEAR OF RETINA ; right PHILL curtis [facility] 4 15:15:14 Essential hypertension 37340249 Active 2023 PHILL curtis [facility] 4 15:15:24 Harmful pattern of use of alcohol 71487298 Active 2023 PHILL curtis [facility] 4 15:15:36 Mixed anxiety and depressive disorder 635361084 Active 2023 PHILL HAMMOND [facility] [place] 4 15:15:51 Gout 36536443 Active 2024 Daniel Posadas MD [address] [place] [address], [phone], [facility] [place] 5 15:35:43 Mixed hyperlipidemia 166744666 Active 2024 Daniel Posadas MD [address] [place] [address], [phone], [facility] [place] 5 15:36:09 Chronic diarrhea 775175071 Active 2024 Daniel Posadas MD [address] [place] [address], [phone], [facility] [place] 5 15:42:08 Problem Notes None recorded. Procedures Surgical History Date Name Laterality Status Provider Name and Address Organization Details Recorded Time 3 radiologic examination of knee completed PHILL HAMMOND [facility] [place] 05/23/2023 13:10:31 repair of cleft lip [facility]/10/2024 15:11:39 Imaging Results None recorded. Procedure Notes None recorded. Medical Equipment None Reported. Allergies No known drug allergies Medications Name Sig Start Date Stop Date Status Note LastModified by Organization Details LastModified Time latanopro st 0.005 % eye drops INSTILL 1 DROP INTO BOTH EYES EVERY DAY IN THE EVENING active Not Available Not Available No t Available allopurin ol 100 mg tablet TAKE 1 TABLET BY MOUTH EVERY DAY 2024 active Not Available Not Available Not Avai lable timolol maleate 0.25 % eye drops INSTILL 1 DROP INTO BOTH EYES ONCE DAILY active Not Available Not Available No t Available paroxetin e 20 mg tablet TAKE 1 TABLET BY MOUTH EVERY DAY 2024 active Not Available Not Available Not Avai lable lisinopri l 10 mg tablet TAKE 1 TABLET BY MOUTH EVERY DAY 2024 active Not Available Not Available Not Avai lable timolol maleate 0.5 % eye drops INSTILL 1 DROP IN EACH EYE EVERY DAY 01/09 completed Not Available Not Available Not Available dorzolami de 2 % eye drops INSTILL 1 DROP INTO BOTH EYES TWICE A DAY active Not Available Not Available No t Available magnesium daily 07/07 completed Recorded 01/28/20 22 4:37PM by ABBEY Glover, Office Visit; Refill Quantity : 90; Tablet; Not Available Not Available Not Available Vitamin-C daily 07/07 completed Recorded 01/28/20 22 4:37PM by ABBEY Glover, Office Visit; Refill Quantity : 90; Tablet; Not Available Not Available Not Available Fenofibra te daily 07/07 completed [id number]; Recorded 03/23/20 9:51AM by Phill Hammond CMT (Authori zed through ABBEY Glover), Refill Request; Refill Quantity : 90; Tablet; Not Available Not Available Not Available fenofibra te nanocryst allized 145 mg tablet TAKE 1 TABLET BY MOUTH EVERY DAY 2024 active Not Available Not Available Not Avai lable Voltaren 1 % topical gel APPLY 2 GRAMS TO THE AFFECTED AREA(S) BY TOPICAL ROUTE 4 TIMES PER DAY 01/06 completed Not Available Not Available Not Available Vitals Date Recorded Body height Body mass index (BMI) Body weight Oxygen saturation Oxygen saturation in Arterial blood by Pulse oximetry Heart rate Respiratory rate Body temperature Systolic And Diastolic Provider Name and Address Organization Details Last Updated DateTime 5 170.18 cm 25.7 kg/m2 07659.1 5 g 98 % 98 % 83 /min 18 /min 97.3 [degF] 130/74 mm[Hg] Elissa Richard [facility] 5 15:21:53 Date Recorded Body height Body mass index (BMI) Body weight Oxygen saturation Oxygen saturation in Arterial blood by Pulse oximetry Heart rate Respiratory rate Systolic And Diastolic Provider Name and Address Organization Details Last Updated DateTime 4 170.18 cm 24.9 kg/m2 10149.1 9 g 99 % 99 % 66 /min 29 /min 124/72 mm[Hg] PHILL HAMMOND [facility] 4 15:03:37 Date Recorded Body height Body mass index (BMI) Body weight Oxygen saturation Oxygen saturation in Arterial blood by Pulse oximetry Heart rate Respiratory rate Body temperature Systolic And Diastolic Provider Name and Address Organization Details Last Updated DateTime 3 170.18 cm 25.4 kg/m2 05391.9 6 g 97 % 97 % 55 /min 20 /min 96.9 [degF] 143/73 mm[Hg] Charley Emery [facility] 3 13:57:30 Social History Question Answer Notes LastModified by [email or web address] Details LastModified Time Tobacco Smoking Status Never Smoker PHILL HAMMOND [facility] 01/10/2024 15:09:56 What Is Your Level Of Caffeine Consumption? None [email or web address] Information not available 01/10/2024 What Type Of Diet Are You Following? REGULAR [email or web address] Information not available 01/10/2024 What Is Your Relationship Status? [email or web address] Information not available 01/10/2024 Sex: Unknown Functional Status Question Answer Note LastModified by [email or web address] Details LastModified Time Do you use any illicit or recreational drugs? No [email or web address] Information not available 01/10/2024 What is your level of alcohol consumption? Heavy 6 pack of beer per night Information not available 01/10/2024 Are you able to care for yourself independently? Yes Information not available 01/10/2024 Mental Status None recorded. Family History Relationship Description Onset Age of this Age Resolved Age Notes LastModified by Organization Details LastModified Time Father Diabetes mellitus age 87 follow ing gallbl adder sepsis [email or web address] Not available 01/10/2024 15:08:50 Brother Diabetes mellitus [email or web address] Not available 01/09 15:05:16 Sister Diabetes mellitus [email or web address] Not available 01/09 15:05:06 Sister Aneurysm of thoracic aorta age 69 [email or web address] Not available 01/10/2024 15:06:16 Mother Chronic obstructive pulmonary disease age75 [email or web address] Not available 01/10/2024 15:08:15 Medical History Condition Response Anxiety Disorder Y Hypertension Y Depression Y Past Encounters Encounter ID Performer Location Encounter Start Date Encounter Closed Date Diagnosis/Indication Diagnosis SNOMED-CT Code Diagnosis ICD10 Code Diagnosis IMO Codes Diagnosis Note [id number] ABBEY CABRERA [facility] ([facility]) [address] [place] [address] 05/19/2023 12:23:18 05/25/2023 12:49:12 Pain of right knee joint [id number] M25.090 [id number] ABBEY CABRERA [facility] ([facility]) [address] [place] [address] 01/10/2024 14:30:50 01/10/2024 15:47:34 Essential hypertension [id number] I10 Mixed anxi ety and depressive disorder [id number] F41.8 Primary hypertriglyceridemia [id number] E78.1 Gout 11909884 M10.9 Screening for malignant neoplasm of prostate [id number] Z12.5 [id number] Daniel Posadas MD [facility] ([facility]) [address] [place] [address] 07/17/2024 15:04:12 07/17/2024 16:22:45 Essential hypertension [id number] I10 Patient is doing well on current medication s. Mixed anxi ety and depressive disorder [id number] F41.8 Patient is doing well with paroxetine Gout [id number] M10.9 Patient takes allopurino l daily and denies any recent flares. Mixed hyperlipidemia [id number] E78.2 Patient tolerates fenofibrat e. Chronic diarrhea [id number] 09 K52.9 No obvious cause based off history or exam. We will obtain labs and stool studies for further evaluation . Recommend the patient undergo colonoscop y as well. Health Concerns Section Related Observation LastModified by Organization Detai ls LastModified Time None Recorded Concern Status LastModified by Organization Details LastModified Time None Recorded Advance Directives Directive None Recorded Payers Insurance Date Sequence Insurance Name Policy Number Policy Maldonado Covered Member ID Maldonado Member ID Guarantor Name 07/14/2024 [place] - [id number] (MEDICARE) Mina Tenorio Jr [id number] Mina Tenorio 07/14/2024 1 [place] Mina Tenorio Jr [id number] Mina Tenorio 07/25/2024 2 [employer] (MEDICARE SUPPLEMENT) Mina Tenorio [id number] Mina Tenorio Notes Date Note Type Note Provider Name and Address Organization Details Recorded Time 3 text/html Joint PainReported by PatientHPIFor quality, patient reportssharpanddull. For severity, patient reportsinterferes with sleepbut reportsno change. For location, patient reportsright knee. For duration, patient reportspresent <1 month. For timing, patient reportsintermittentandgradu al. For alleviating factors, patient reportsrestandchanging position. For aggravating factors, patient reportsmovement/positioning andtwisting. For adls affected, patient reportsclimbing stairs.ROS as noted in the HPI ABBEY CABRERA [address] [place], [address], [facility] 05/23/2023 11:07:13 4 text/html Hypertension IM/FMReported by PatientHPIFor severity, patient reportselevated (120-129/<80 mmhg)but reportsmild. For quality, patient reportshere for check-up. For onset/timing, patient reportsgradual onset. For context, patient reportsnone. For alleviating factors, patient reportsmedication. For self care, patient reportsusing an sharifa inhibitor. ABBEY CABRERA [address] [place], [address], [facility] 01/10/2024 15:39:50 5 text/html Annual WellnessReported by Patient This is a 68-year-old gentleman that comes in today to establish care. Patient has several chronic medical issues that have been stable on current medication. Patient's biggest concern is chronic diarrhea. The patient states that it is persistent and daily. Patient states has been going on for years. Patient states that he cannot hardly leave the house because he will have to stop and go to the bathroom. Patient states that this is never been worked up previously patient states that he had colonoscopy greater than 5 years ago. Patient denies any specific aggravating factors. Patient states that Imodium does seem to help. Daniel Posadas MD [address] [place] [address], [phone], [facility] [place] 07/21/2024 10:12:45
--- OUTSIDE RECORDS SUMMARY | 2025-03-10 19:10 | XMS_ITS | Encounter Summary ---
Author Organization [facility] Address [address] [place] [address] Care Team Providers Care Tailings Worker Name Role Phone Alireza Greer MD, Brown David Primary Care Provider Encounter Details Date Type Department Care Team (Latest Contact Info) Description 12/18/2002 Outpatient Historical [facility] Roosevelt Guardado MD [address] [place], [place] [id number] HYPERTENSION NOS (Primary Dx) Social History Tobacco Use Types Packs/Day Years Used Date Smoking Tobacco: Never Assessed Sex and Gender Information Value Date Recorded Sex Assigned at Not on file 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
[2025-03-10 19:28] VITALS: PULSE 68; RESP 18; O2SAT 99
--- NOTE | 2025-03-10 19:28 | W.ED.CHESTPA ---
HPI - Chest Pain General: Chief Complaint: Chest Pain Stated Complaint: CP Time Seen by Provider: 03/10/25 19:18 History of Present Illness: 69-year-old man with a history of hypertension and anxiety who presents emergency room with right-sided chest discomfort and some right numbness to his cheek earlier today. symptoms have since resolved. No cough. No fevers. No altered mental status. He said his checked his blood pressure and was higher than normal. No lower extremity swelling. He says he thinks it might just be anxiety Related Data Home Medications ?Medication ?Instructions ?Recorded ?Confirmed allopurinol 100 mg tablet 100 mg PO DAILY 06/22/23 06/22/23 ascorbic acid (vitamin C) 500 mg mg PO 06/22/23 06/22/23 capsule fenofibrate 150 mg capsule 150 mg PO DAILY 06/22/23 06/22/23 lisinopril 10 mg tablet 10 mg PO BID 06/22/23 06/22/23 magnesium 250 mg tablet 250 mg PO DAILY 06/22/23 06/22/23 paroxetine HCl 20 mg tablet 20 mg PO DAILY 06/22/23 06/22/23 Allergies Allergy/AdvReac Type Severity Reaction Status Date / Time No Known Allergies Allergy Verified 03/10/25 19:13 Review of Systems Narrative: Constitutional symptoms: Negative except as documented in HPI. Skin symptoms: Negative except as documented in HPI. Eye symptoms: Negative except as documented in HPI. ENMT symptoms: Negative except as documented in HPI. Respiratory symptoms: Negative except as documented in HPI. Cardiovascular symptoms: Negative except as documented in HPI. Gastrointestinal symptoms: Negative except as documented in HPI. Genitourinary symptoms: Negative except as documented in HPI. Musculoskeletal symptoms: Negative except as documented in HPI. Neurologic symptoms: Negative except as documented in HPI. Psychiatric symptoms: Negative except as documented in HPI. Endocrine symptoms: Negative except as documented in HPI. Physical Exam Narrative: EXAM NARRATIVE: General: Alert, no acute distress. Skin: Warm, dry. Head: Normocephalic, atraumatic. Neck: Supple, trachea midline. Eye: Extraocular movements are intact. Ears, nose, mouth and throat: mucosa moist. Cardiovascular: Regular, Normal peripheral perfusion. Respiratory: Lungs are clear to auscultation, respirations are non-labored, breath sounds are equal, Symmetrical chest wall expansion. Gastrointestinal: Soft, Nontender, Non distended Musculoskeletal: Normal ROM, no deformity. Neurological: Alert and oriented, No focal neurological deficit observed. Psychiatric: Cooperative, appropriate mood & affect. Course Vital Signs: Vital signs: Vital Signs Temperature 98.2 F 03/10/25 19:04 Pulse Rate 71 03/10/25 22:07 Respiratory Rate 16 03/10/25 22:07 Blood Pressure 150/91 03/10/25 22:07 Pulse Oximetry 98 03/10/25 22:07 MDM - Chest Pain Medical Decision Making Differential diagnosis for patient with chest pain includes but is not limited to and based on the above HPI, review of systems and physical exam: Pneumonia. unstable angina. angina. Acute coronary syndrome / MT. Pulmonary embolism. Costochondritis / musculoskeletal. Pleurisy. Pericarditis. Esophageal spasm. Pancreatis. Cholecystitis. Orders placed to evaluate differential diagnosis based on the above differential, HPI and physical exam EKG: Time 1906. Rate 67. Normal sinus rhythm, No ST-T changes, no ectopy, normal SD & QRS intervals, This was reviewed and interpreted by myself the ER physician at 1911 Chest x-ray: No acute process. No infiltrate. No pneumothorax. This was reviewed and interpreted by myself the emergency room physician. I also reviewed the radiology report. Lab Review: Laboratory results were reviewed and interpreted by myself the emergency room physician. No leukocytosis. No anemia. No renal failure. Lipase is negative. I reviewed the patient's medical record. 69-year-old man with a history of hypertension and anxiety Reexamination: Patient remained stable. No increased work of breathing. No altered mental status. No focal motor deficits. Assessment and plan: Atypical chest pain - Discharged home - Discussed plan with patient. Answered any questions. - Evaluation and treatment of this problem were appropriate in the emergency setting. Lab Data 03/10/25 19:27 03/10/25 20:07 Radiology Impressions Chest X-Ray 03/10/25 19:10 IMPRESSION: No acute findings. Laboratory Results WBC 7.21 10^3/uL (3.29-11.43) 03/10/25 19: RBC 4.04 10^6/uL (3.85-5.65) 03/10/25 19: Hgb 14.10 g/dL (11.27-16.99) 03/10/25 19: Hct 41.2 % (37-53) 03/10/25 19: MCV 102.0 fl (82-101) H 03/10/25 19: MCH 34.9 pg (27-33) H 03/10/25 19: MCHC 34.2 g/dL (30-55) 03/10/25 19: RDW 12.1 % (12.1-15.1) 03/10/25 19: Plt Count 256 10^3/cmm (157-399) 03/10/25 19: MPV 8.8 fL (7.4-10.4) 03/10/25 19: Neut % (Auto) 53.2 % 03/10/25 19: Lymph % (Auto) 35.4 % 03/10/25 19: Gilchrist % (Auto) 9.6 % 03/10/25 19: Eos % (Auto) 1.0 % 03/10/25 19: Baso % (Auto) 0.4 % 03/10/25 19: Neut # (Auto) 3.84 10^3/uL (1.8-7.7) 03/10/25 19:27 Lymph # (Auto) 2.6 10^3/uL (0.8-4.8) 03/10/25 19:27 Gilchrist # (Auto) 0.7 10^3/uL (0.2-0.9) 03/10/25 19:27 Eos # (Auto) 0.1 10^3/uL (0.0-0.8) 03/10/25 19: Baso # (Auto) 0.0 10^3/uL (0.0-0.1) 03/10/25 19: Nucleated RBC % (auto) 0 % 03/10/25 19: Nucleated RBCs # 0.0 /100WBC 03/10/25 19:27 Sodium 135 mmol/L (136-145) L 03/10/25 20:07 Potassium 3.9 mmol/L (3.5-5.1) 03/10/25 20:07 Chloride 102 mmol/L (98-107) 03/10/25 20:07 Carbon Dioxide 20 mmol/L (22-29) L 03/10/25 20:07 Anion Gap 16.9 (5-19) 03/10/25 20:07 BUN 15 mg/dL (8-23) 03/10/25 20:07 Creatinine 0.9 mg/dL (0.7-1.2) 03/10/25 20:07 GFR Calculation 83.7 mL/min (90-130) L 03/10/25 20:07 Glucose 109 mg/dL (65-115) 03/10/25 20:07 Calculated Osmolality 281 mOsm/kg (285-295) L 03/10/25 20:07 Calcium 8.8 mg/dL (8.5-10.5) 03/10/25 20:07 Total Bilirubin 0.7 mg/dL (0.15-1.2) 03/10/25 20:07 AST 29 U/L (0-40) 03/10/25 20:07 ALT 18 U/L (0-41) 03/10/25 20:07 Alkaline Phosphatase 44 U/L (40-130) 03/10/25 20:07 Troponin T Baseline < 6 ng/L (0-15) 03/10/25 20:07 NT-Pro-B Natriuret Pep 141 pg/mL (0-125) H 03/10/25 20:07 Total Protein 6.6 g/dL (6.6-8.7) 03/10/25 20:07 Albumin 4.2 g/dL (3.5-5.2) 03/10/25 20:07 Globulin 2.4 g/dL (1.3-4.6) 03/10/25 20:07 Lipase 62 U/L (13-60) H 03/10/25 20:07 All radiology interpretation(s) finalized by discharge Discharge Plan Discharge Patient Disposition: Home Clinical Impression: Atypical chest pain Condition: Stable Prescriptions: No Action lisinopril 10 mg tablet 10 mg PO BID paroxetine HCl 20 mg tablet 20 mg PO DAILY fenofibrate 150 mg capsule 150 mg PO DAILY allopurinol 100 mg tablet 100 mg PO DAILY magnesium 250 mg tablet 250 mg PO DAILY ascorbic acid (vitamin C) 500 mg capsule PO Discharge Orders: Discharge ED (Routine); Ordered 03/10/25 Ordered By: Hank Sosa Referrals: Chris Posadas MD [Primary Care Provider, Family Practice] Tessa Curtis MD [Physician, Cardiology] - 7-10 days Patient Instructions: Chest Pain (ED), Patient Portal & Anastasia Instructions Activity Restrictions/Additional Instructions: You were seen in the emergency department for chest pain. Your EKG and blood test did not show any evidence of active damage to your heart, I do recommend you follow-up with a hide spreader for comprehensive evaluation as an outpatient. Return to the emergency department if you experience recurrent chest pain, shortness of breath, cough, weight loss, blood in your vomit stool or cough, fevers, or any other concerns Print Language: Yi Coding Level of Care Code ED Locomotive Electrician for Chg Fwd Heart Score HEART Score Components History: Slightly Suspicous EKG: Normal Age: Less than 45 yrs Risk Factors: No Risk Factors Known Troponin: Baseline Trop <16 ng/L HEART Score RESULT HEART Score: 0
[2025-03-10 19:34] LABS: Hematocrit 41.2 % (37-53); Hemoglobin 14.10 g/dL (11.27-16.99); Mean Corpuscular HGB Conc 34.2 g/dL (30-55); Mean Corpuscular Hemoglobin 34.9 pg (27-33); Mean Corpuscular Volume 102.0 fl (82-101); Nucleated Red Blood Cells % 0 %; Platelet Count 256 10^3/cmm (157-399); Red Blood Count 4.04 10^6/uL (3.85-5.65); White Blood Count 7.21 10^3/uL (3.29-11.43)
--- NOTE | 2025-03-10 20:28 | W.ED.CHESTPA ---
HPI - Chest Pain General: Chief Complaint: Chest Pain Stated Complaint: CP Time Seen by Provider: 03/10/25 19:18 History of Present Illness: This is a 69-year-old male with a past medical history significant for hypertension, hypertriglyceridemia, gout, positive family history of cardiac disease, no reported history of personal heart disease or smoking, presenting with onset yesterday intermittent of chest pressure-like discomfort, occasionally a sensation of heaviness to the right side of his face that happens at the same time as the chest discomfort, initially noticed yesterday lasted a couple hours nonexertional, fully resolved overnight and then recurred today this afternoon and also lasting about an hour, no exertion, no history of exertional chest pain in the past, has had chest discomfort described as tingling/pressure that he attributed to anxiety in the past, currently is asymptomatic, no leg swelling or calf tenderness, no shortness of breath or cough or fever Related Data Home Medications ?Medication ?Instructions ?Recorded ?Confirmed allopurinol 100 mg tablet 100 mg PO DAILY 06/22/23 06/22/23 ascorbic acid (vitamin C) 500 mg mg PO 06/22/23 06/22/23 capsule fenofibrate 150 mg capsule 150 mg PO DAILY 06/22/23 06/22/23 lisinopril 10 mg tablet 10 mg PO BID 06/22/23 06/22/23 magnesium 250 mg tablet 250 mg PO DAILY 06/22/23 06/22/23 paroxetine HCl 20 mg tablet 20 mg PO DAILY 06/22/23 06/22/23 Allergies Allergy/AdvReac Type Severity Reaction Status Date / Time No Known Allergies Allergy Verified 03/10/25 19:13 Physical Exam Narrative: EXAM NARRATIVE: Gen: A&Ox4, no acute distress, nontoxic appearing HEENT: Normocephalic, atraumatic, no scleral icterus, external ears normal, moist mucous membranes Neck: Supple, full range of motion, no observable masses Lungs: No Respiratory distress, Lungs clear to auscultation bilaterally no rales, rhonchi, wheezing CV: Regular rate and rhythm, no murmur, no pitting edema to lower extremities bilaterally Abdomen: Soft, nondistended, nontender to palpation MSK: No joint swelling, FROM all 4 extremities Skin: No rashes, petechiae, lesions. Normal color per patient. Neuro: Alert and oriented, no slurred speech, sensation and strength grossly intact all 4 extremities Psych: Appropriate for situation. Course Reevaluation(s): Reevaluation #1: Patient reevaluated, still asymptomatic, troponin undetectable, stable for discharge with outpatient PCP and cardiology follow-up. referral to case management put in to establish expedited outpatient cardiology follow up Time: 21:18 Vital Signs: Vital signs: Vital Signs Temperature 98.2 F 03/10/25 19:04 Pulse Rate 71 03/10/25 22:07 Respiratory Rate 16 03/10/25 22:07 Blood Pressure 150/91 03/10/25 22:07 Pulse Oximetry 98 03/10/25 22:07 MDM - Chest Pain Medical Decision Making 69-year-old male history hypertension hypertriglyceridemia anxiety and a positive family history of cardiac disease, presenting the emergency department with nonspecific intermittent chest discomfort, right facial numbness , none of which is currently present at the time of this evaluation, nonexertional, no nausea no diaphoresis no radiation of the symptoms, initial exam benign, vitals benign, EKG nonischemic, moderate risk heart score predominantly based on risk factors age and medical history, discussed with patient management of chest pain in the emergency department as well as the options of inpatient observation versus outpatient cardiology testing. At this time patient appears to stable for outpatient cardiology testing and his and him both feel comfortable with this plan of care, understands to return to the ED if his symptoms return or worsen. Differentials considered include ACS, MSK chest pain, anxiety, aortic dissection, pulmonary embolism, pneumonia, pneumothorax, GERD/esophagitis/gastritis, occult malignancy, Queen's palsy, CVA Lab Data Labs showing borderline hyponatremia, negative troponin, no anemia or leukocytosis, no LFT abnormalities, normal creatinine 03/10/25 19:27 03/10/25 20:07 Radiology Impressions Chest X-Ray 03/10/25 19:10 IMPRESSION: No acute findings. Laboratory Results WBC 7.21 10^3/uL (3.29-11.43) 03/10/25 19: RBC 4.04 10^6/uL (3.85-5.65) 03/10/25 19:27 Hgb 14.10 g/dL (11.27-16.99) 03/10/25 19: Hct 41.2 % (37-53) 03/10/25 19: MCV 102.0 fl (82-101) H 03/10/25 19: MCH 34.9 pg (27-33) H 03/10/25 19: MCHC 34.2 g/dL (30-55) 03/10/25 19: RDW 12.1 % (12.1-15.1) 03/10/25 19: Plt Count 256 10^3/cmm (157-399) 03/10/25 19: MPV 8.8 fL (7.4-10.4) 03/10/25 19: Neut % (Auto) 53.2 % 03/10/25 19: Lymph % (Auto) 35.4 % 03/10/25: Boyd % (Auto) 9.6 % 03/10/25: Eos % (Auto) 1.0 % 03/10/25: Baso % (Auto) 0.4 % 03/10/25: Neut # (Auto) 3.84 10^3/uL (1.8-7.7) 03/10/25 19: Lymph # (Auto) 2.6 10^3/uL (0.8-4.8) 03/10/25 19: Boyd # (Auto) 0.7 10^3/uL (0.2-0.9) 03/10/25 19: Eos # (Auto) 0.1 10^3/uL (0.0-0.8) 03/10/25 19: Baso # (Auto) 0.0 10^3/uL (0.0-0.1) 03/10/25: Nucleated RBC % (auto) 0 % 03/10/25: Nucleated RBCs # 0.0 /100WBC 03/10/25 19: Sodium 135 mmol/L (136-145) L 03/10/25 20:07 Potassium 3.9 mmol/L (3.5-5.1) 03/10/25 20:07 Chloride 102 mmol/L (98-107) 03/10/25 20:07 Carbon Dioxide 20 mmol/L (22-29) L 03/10/25 20:07 Anion Gap 16.9 (5-19) 03/10/25 20:07 BUN 15 mg/dL (8-23) 03/10/25 20:07 Creatinine 0.9 mg/dL (0.7-1.2) 03/10/25 20:07 GFR Calculation 83.7 mL/min (90-130) L 03/10/25 20:07 Glucose 109 mg/dL (65-115) 03/10/25 20:07 Calculated Osmolality 281 mOsm/kg (285-295) L 03/10/25 20:07 Calcium 8.8 mg/dL (8.5-10.5) 03/10/25 20:07 Total Bilirubin 0.7 mg/dL (0.15-1.2) 03/10/25 20:07 AST 29 U/L (0-40) 03/10/25 20:07 ALT 18 U/L (0-41) 03/10/25 20:07 Alkaline Phosphatase 44 U/L (40-130) 03/10/25 20:07 Troponin T Baseline < 6 ng/L (0-15) 03/10/25 20:07 NT-Pro-B Natriuret Pep 141 pg/mL (0-125) H 03/10/25 20:07 Total Protein 6.6 g/dL (6.6-8.7) 03/10/25 20:07 Albumin 4.2 g/dL (3.5-5.2) 03/10/25 20:07 Globulin 2.4 g/dL (1.3-4.6) 03/10/25 20:07 Lipase 62 U/L (13-60) H 03/10/25 20:07 All radiology interpretation(s) finalized by discharge ED provider radiology interpretation(s): Chest x-ray negative for pneumonia or pneumothorax EKG Data EKG 1: I personally reviewed and interpreted this EKG as follows: EKG interpretation date: 03/10/25 EKG interpretation time: 20:30 Prior EKG tracings: not available for review Interpretation: Normal sinus rhythm at 67 bpm, no STEMI, no ectopy, normal axis, QTc 4 3 ms Clincial Decision Support The following clinical decision support tools were used to aid in care of the patient HEART Score -> History: Slightly Suspicous, EKG: Normal, Age: 65 or more yrs, Risk Factors: >/=3 Risk Factors, Troponin: Baseline Trop <16 ng/L. Resulting HEART Score: 4. Discharge Plan Discharge Patient Disposition: Home Clinical Impression: Atypical chest pain Condition: Stable Prescriptions: No Action lisinopril 10 mg tablet 10 mg PO BID paroxetine HCl 20 mg tablet 20 mg PO DAILY fenofibrate 150 mg capsule 150 mg PO DAILY allopurinol 100 mg tablet 100 mg PO DAILY magnesium 250 mg tablet 250 mg PO DAILY ascorbic acid (vitamin C) 500 mg capsule PO Discharge Orders: Discharge ED (Routine); Ordered 03/10/25 Ordered By: Hank Sosa Referrals: Chris Posadas MD [Primary Care Provider, Family Practice] Tessa Curtis MD [Physician, Cardiology] - 7-10 days Patient Instructions: Chest Pain (ED), Patient Portal & Anastasia Instructions Activity Restrictions/Additional Instructions: You were seen in the emergency department for chest pain. Your EKG and blood test did not show any evidence of active damage to your heart, I do recommend you follow-up with a cork compounder for comprehensive evaluation as an outpatient. Return to the emergency department if you experience recurrent chest pain, shortness of breath, cough, weight loss, blood in your vomit stool or cough, fevers, or any other concerns Print Language: Sammarinese Coding Level of Care Code ED Help Desk Manager for Chg Fwd Heart Score HEART Score Components History: Slightly Suspicous EKG: Normal Age: 65 or more yrs Risk Factors: >/=3 Risk Factors Troponin: Baseline Trop <16 ng/L HEART Score RESULT HEART Score: 4
[2025-03-10 20:36] LABS: Troponin(5th) Baseline < 6 ng/L (0-15)
[2025-03-10 20:50] LABS: Alanine Aminotransferase 18 U/L (0-41); Albumin Level 4.2 g/dL (3.5-5.2); Alkaline Phosphatase 44 U/L (40-130); Anion Gap 16.9 (5-19); Aspartate Amino Transferase 29 U/L (0-40); Blood Urea Nitrogen 15 mg/dL (8-23); Calcium 8.8 mg/dL (8.5-10.5); Carbon Dioxide 20 mmol/L (22-29); Chloride 102 mmol/L (98-107); Creatinine Clr Calc Pharmacy 76.2562; Globulin 2.4 g/dL (1.3-4.6); Glucose 109 mg/dL (65-115); Lipase 62 U/L (13-60); NT Pro B Type Natriuretic Pept 141 pg/mL (0-125); Osmolality Calculated 281 mOsm/kg (285-295); Potassium 3.9 mmol/L (3.5-5.1); Sodium 135 mmol/L (136-145); Total Protein 6.6 g/dL (6.6-8.7)
[2025-03-10 22:07] VITALS: BP 150/91; PULSE 71; RESP 16; O2SAT 98
== END 2025-03-10 22:08 | disposition home or self-care (01) ==
PROVIDERS: Emergency Medicine; Emergency Provider Student in an Organized Health Care Education/Training Program; PCP Family Medicine
DX: R07.89 Other chest pain (principal)
CPT/HCPCS: 36415; 71045; 80053; 83690; 83880; 84484; 85025; 93005; 99285

== ENCOUNTER → 2025-04-02 13:15 | Outpatient (BNVA) | payer MEDICARE, SELFPAY | PROVIDERS: PCP Family Medicine; Visit Provider Podiatrist Foot & Ankle Surgery | DX: Q66.71 Congenital pes cavus, right foot (principal); Q66.72 Congenital pes cavus, left foot; M77.41 Metatarsalgia, right foot; M77.42 Metatarsalgia, left foot | CPT/HCPCS: 73630; 99204 ==

== ENCOUNTER 2025-04-29 12:14 | Outpatient (CLI) | payer MEDICARE, SELFPAY ==
--- NOTE | 2025-04-29 12:19 | MR_ITS ---
WS: [id number] MRI HEAD WITH CONTRAST TECHNIQUE: Sagittal T1, T2 axial, T2 axial FLAIR, axial susceptibility weighted imaging, axial diffusion weighted images, and coronal T2 images were obtained. Pre and post-T1 axial and post T1 coronal images. ADC and FSPGR images. CLINICAL INFORMATION: MEMORY LOSS/OTHER AMNESIA COMPARISON: None. FINDINGS: No evidence of restricted diffusion to suggest acute ischemia. Ventricular system and basal cisterns are patent. Mild small vessel changes. Moderate parenchymal volume loss worse in the parietal lobes. Normal posterior fossa. Normal vascular flow voids at the skull base. No extra-axial fluid collections. Mild mucosal thickening in the paranasal sinuses. Mastoid air cells are well aerated. Normal posterior nasopharynx. Incidental aby cisterna magna. Moderate symmetric atrophy temporal lobes and hippocampal formations. Normal optic chiasm and pituitary infundibulum. No abnormal gadolinium enhancement. Benign venous angioma RIGHT temporoparietal junction. MR/MR head wo/w con [id number] IMPRESSION: 1. No evidence of restricted diffusion to suggest acute ischemia. 2. Mild small vessel changes. Moderate parenchymal volume loss worse in the pa rietal lobes. 3. Moderate symmetric atrophy temporal lobes and hippocampal formations. 4. No abnormal gadolinium enhancement. 5. No other acute findings.
[2025-04-29] MEDS: gadobenate dimeglumine 20 mL vial 16 ML IV (13:12)
== END 2025-04-29 12:15 | disposition home or self-care (01) ==
LOC: RAD 12:15
PROVIDERS: PCP Family Medicine; Visit Provider Family Medicine
DX: R41.3 Other amnesia (principal); G31.89 Other specified degenerative diseases of nervous system
CPT/HCPCS: 70553; A9577

== ENCOUNTER → 2025-05-06 15:27 | Outpatient (BNVA) | payer MEDICARE, SELFPAY | PROVIDERS: PCP Family Medicine; Visit Provider Internal Medicine Cardiovascular Disease | DX: R07.89 Other chest pain (principal); I10 Essential (primary) hypertension; F41.9 Anxiety disorder, unspecified | CPT/HCPCS: 99214 ==

== ENCOUNTER 2025-05-13 12:27 | Outpatient (CLI) | payer MEDICARE, SELFPAY ==
--- NOTE | 2025-05-13 | ECG_ITS ---
[facility] Pat Name: Mina Tenorio Department: Room: Gender: Male [employer]: : 1955 Requested By: Riley Giordano Order Number: [id number] Rice MD: Timmy Mayen M.D. Interpretive Statements Findings:The patient's blood pressure at baseline was 143/75 mmHg with a heart rate of 67 bpm. Patient exercised for total of 7 minutes and 24 seconds on the Rivas protocol achieving a maximum heart rate of 137 bpm which was 90% of the patient's maximal predicted heart rate. The patient achieved 7 METS. The maximum blood pressure was 196/115. The patient experienced no chest pain with exercise. At the end of recovery the patient's blood pressure was 164/90 with a heart rate of 78 bpm. The baseline EKG showed normal sinus rhythm with no ST or T wave abnormalities. Stress EKG was negative for ischemic changes. There were occasional PVCs during the stress test that increased to frequent PVCs early in recovery. PVCs resolved by 3 minutes into recovery. CONCLUSION: 1. Exercise capacity was average for age. 2. Heart rate response was appropriate. 3. Blood pressure response was hypertensive. 4. No symptoms of angina during exercise. 5. Electrocardiogram portion of the stress test without evidence of ischemia. 6. Occasional PVCs during the stress test. Frequent PVCs early in recovery which resolved by 3 minutes into recovery. Electronically Signed On 05-14-2025 19:16:45 EPIC KALEIDOSCOPE ANALYST by Timmy Mayen M.[email or web address]
[2025-05-13 12:38] VITALS: BP 164/90; PULSE 78; BMI 25.3
== END 2025-05-13 12:28 | disposition home or self-care (01) ==
LOC: CDL 12:30
PROVIDERS: PCP Family Medicine; Visit Provider Internal Medicine Cardiovascular Disease
DX: R07.9 Chest pain, unspecified (principal)
CPT/HCPCS: 93017

== ENCOUNTER 2025-05-14 14:56 | Outpatient (CLI) | payer MEDICARE, SELFPAY | END 2025-05-14 14:57 | disposition home or self-care (01) | LOC: SPT 14:57 | PROVIDERS: PCP Family Medicine; Visit Provider Podiatrist Foot & Ankle Surgery | DX: Z46.89 Encounter for fitting and adjustment of other specified devices (principal); Q66.71 Congenital pes cavus, right foot; Q66.72 Congenital pes cavus, left foot | CPT/HCPCS: L3030 ==